=== PATIENT | female | born 1980 | race African-American/Black ===

== ENCOUNTER 2020-10-09 03:56 | Emergency (ER) | payer OTHER ==
[~2020-10-09] VITALS: Ht 172.7 cm; Wt 61.2 kg
[2020-10-09 03:59] VITALS: BP 126/80
[2020-10-09] MEDS ORDERED: NACL 0.9% 1,000 ML IV ONE ×2 (04:35→06:30)
[2020-10-09] MEDS ORDERED: ACETAMINOPHEN EXTRA STRENGTH 500 MG TAB PO ONE (04:35)
[2020-10-09 05:16] LABS: BASOPHILS % (AUTO) 0.3 % (0.0-2.0); EOSINOPHILS # (AUTO) 0.1 K/uL (0-0.4); EOSINOPHILS % (AUTO) 0.4 % (0.0-4.0); HEMATOCRIT 32.6 % (36-48); HEMOGLOBIN 10.5 g/dL (12.0-16.0); LYMPHOCYTES # (AUTO) 3.4 K/uL (2.5-16.5); LYMPHOCYTES % (AUTO) 24.7 % (20.5-51.1); MEAN CORPUSCULAR HEMOGLOBIN 28 pg (27-31); MEAN CORPUSCULAR HGB CONC 32 g/dL (33-37); MEAN CORPUSCULAR VOLUME 86.6 fL (80-94); MONOCYTES # (AUTO) 0.6 K/uL (0.8-1.0); MONOCYTES % (AUTO) 4.7 % (1.7-9.3); NEUTROPHILS # (AUTO) 9.6 K/uL (1.8-7.7); NEUTROPHILS % (AUTO) 69.9 % (42.2-75.2); PLATELET COUNT (AUTO) 163 K/uL (140-450); RED BLOOD CELL COUNT(AUTO) 3.76 MIL/uL (4.20-5.40); RED CELL DISTRIBUTION WIDTH 16.7 % (11.6-13.7); WHITE BLOOD COUNT (AUTO) 13.8 K/uL (4.8-10.8)
[2020-10-09] MEDS ORDERED: cefTRIAXone 1,000 MG VIAL ONE (05:44)
[2020-10-09 05:45] LABS: ALBUMIN 3.1 g/dL (3.4-5.0); CARBON DIOXIDE 21.6 mmol/L (21-32); CREATININE 0.7 mg/dL (0.6-1.3); POTASSIUM 3.6 mmol/L (3.5-5.1); TOTAL BILIRUBIN 0.2 mg/dL (0.0-1.0)
[2020-10-09 05:54] LABS: APPEARANCE,URINE SL CLOUDY (CLEAR); BILIRUBIN,URINE 1+ (NEGATIVE); BLOOD, URINE TRACE-I (NEGATIVE); COLOR,URINE YELLOW (YELLOW); LEUKOCYTE ESTERASE ,URINE 1+ (NEGATIVE); NITRITE, URINE POSITIVE (NEGATIVE); UGLUCOSE NEGATIVE (NEGATIVE)
[2020-10-09] MEDS ORDERED: D5W IV SCH (05:55)
[2020-10-09] MEDS ORDERED: LIDOCAINE IV SCH (05:55)
[2020-10-09 06:04] LABS: RBC,URINE 0-5 /HPF (0-5)
[2020-10-09 06:05] LABS: URINE AMORPHOUS URATE 1+ /HPF (None Seen)
[2020-10-09] MEDS ORDERED: CEPH-588 PO (09:20)
[2020-10-09] MEDS ORDERED: ACET-10509 PO (09:20)
[2020-10-09 09:45] VITALS: BP 121/65
== END 2020-10-09 09:47 | disposition home or self-care (01) ==
LOC: MED 03:56
DX: O23.00 Infections of kidney in pregnancy, unspecified trimester (principal); F17.210 Nicotine dependence, cigarettes, uncomplicated; Z88.2 Allergy status to sulfonamides
CPT/HCPCS: 36415; 71045; 76770; 76815; 80053; 81001; 81025; 83605; 83880; 84484; 84702; 85025; 87040; 87086; 93005; 96361; 96365; 99285; J0696; J7030

== ENCOUNTER 2020-10-18 19:18 | Emergency (ER) | payer OTHER ==
[~2020-10-18] VITALS: Ht 172.7 cm; Wt 61.2 kg
[~2020-10-18 19:18] MED LIST: ACET-10509 PO; CEPH-588 PO
[2020-10-18 19:36] VITALS: BP 108/64
[2020-10-18 21:25] LABS: BASOPHILS % (AUTO) 0.1 % (0.0-2.0); EOSINOPHILS % (AUTO) 0.1 % (0.0-4.0); HEMATOCRIT 31.5 % (36-48); HEMOGLOBIN 10.3 g/dL (12.0-16.0); LYMPHOCYTES # (AUTO) 1.2 K/uL (2.5-16.5); LYMPHOCYTES % (AUTO) 10.7 % (20.5-51.1); MEAN CORPUSCULAR HEMOGLOBIN 28 pg (27-31); MEAN CORPUSCULAR HGB CONC 33 g/dL (33-37); MEAN CORPUSCULAR VOLUME 86.2 fL (80-94); MONOCYTES # (AUTO) 0.4 K/uL (0.8-1.0); MONOCYTES % (AUTO) 3.8 % (1.7-9.3); NEUTROPHILS # (AUTO) 9.6 K/uL (1.8-7.7); NEUTROPHILS % (AUTO) 85.3 % (42.2-75.2); PLATELET COUNT (AUTO) 155 K/uL (140-450); RED BLOOD CELL COUNT(AUTO) 3.65 MIL/uL (4.20-5.40); RED CELL DISTRIBUTION WIDTH 16.2 % (11.6-13.7); WHITE BLOOD COUNT (AUTO) 11.2 K/uL (4.8-10.8)
[2020-10-18 21:41] LABS: CARBON DIOXIDE 26.4 mmol/L (21-32); CREATININE 0.6 mg/dL (0.6-1.3); POTASSIUM 4.4 mmol/L (3.5-5.1)
[2020-10-18] MEDS ORDERED: ACETAMINOPHEN EXTRA STRENGTH 500 MG TAB PO ONE (22:05)
[2020-10-18 22:15] LABS: APPEARANCE,URINE CLOUDY (CLEAR); BILIRUBIN,URINE NEGATIVE (NEGATIVE); BLOOD, URINE NEGATIVE (NEGATIVE); COLOR,URINE YELLOW (YELLOW); LEUKOCYTE ESTERASE ,URINE NEGATIVE (NEGATIVE); NITRITE, URINE NEGATIVE (NEGATIVE); UGLUCOSE NEGATIVE (NEGATIVE)
[2020-10-18] MEDS ORDERED: ACET-2619 PO (22:52)
== END 2020-10-18 23:14 | disposition home or self-care (01) ==
LOC: MED 19:18
DX: O26.891 Other specified pregnancy related conditions, first trimester (principal); R60.9 Edema, unspecified; D64.9 Anemia, unspecified; Z3A.12 12 weeks gestation of pregnancy; Z79.899 Other long term (current) drug therapy; Z88.2 Allergy status to sulfonamides
CPT/HCPCS: 36415; 80048; 81002; 81003; 83735; 85025; 93970; 99284

== ENCOUNTER 2021-03-21 12:02 | Emergency (ER) | payer OTHER, SELFPAY ==
[~2021-03-21] VITALS: Ht 172.7 cm; Wt 68.2 kg
[~2021-03-21 12:02] MED LIST changes: -ACET-10509 PO; +ACET-2619 PO
[2021-03-21 12:15] VITALS: BP 129/52
--- NOTE | 2021-03-21 12:30 | NUR ---
41 Y/O FEMALE PRESENTS TO ED FOR SUTURE REMOVAL FROM . PT DELIVERED HERE 02/27/21 WITHOUT COMPLICATIONS. PT REPORTS CHILLS X1 WEEK, DENIES FEVER OR EXPOSURE TO COVID. PT REPORTS THIS IS THE FIRST TIME FOLLOWING UP WITH MD. PT C/O PAIN AT INCISION, NO SIGNS OF INFECTION NOTED. PT DENIES TAKING ANYTHING FOR PAIN. PT A/O X4 WITH EVEN AND UNLABORED RESPIRATIONS. PMH:LUPUS, RHEUMATOID ARTHRITIS ALLERGIES:SULFA
--- NOTE | 2021-03-21 13:14 | NUR ---
DR GALLEGOS AT BEDSIDE EVALUATING PT
[2021-03-21] MEDS ORDERED: IBUP-2213 PO (13:20)
[2021-03-21] MEDS ORDERED: ACET-10509 PO (13:20)
--- NOTE | 2021-03-21 13:29 | NUR ---
Patient discharged with v/s stable. Written and verbal after care instructions ABOUT [facility] DELIVERY AFTER CARE given and explained. Patient alert, oriented and verbalized understanding of instructions. Ambulatory with steady gait. All questions addressed prior to discharge. ID band removed. Patient advised to follow up with PMD. Rx of TYLENOL EXTRA STRENGTH AND IBUPROFEN given. Patient educated on indication of medication including possible reaction and side effects. Opportunity to ask questions provided and answered.
== END 2021-03-21 13:29 | disposition home or self-care (01) ==
LOC: MED 12:02
DX: Z48.01 Encounter for change or removal of surgical wound dressing (principal); Z39.2 Encounter for routine postpartum follow-up; Z79.1 Long term (current) use of non-steroidal anti-inflammatories (NSAID); Z79.2 Long term (current) use of antibiotics; Z79.899 Other long term (current) drug therapy; Z88.2 Allergy status to sulfonamides
CPT/HCPCS: 99282

== ENCOUNTER 2021-03-24 11:22 | Emergency (ER) | payer OTHER ==
[~2021-03-24] VITALS: Ht 172.7 cm; Wt 68.0 kg
[~2021-03-24 11:22] MED LIST changes: +ACET-10509 PO; +IBUP-2213 PO
[2021-03-24 11:36] VITALS: BP 125/75
--- NOTE | 2021-03-24 11:41 | NUR ---
PT TO WAIT IN LOBBY.
--- NOTE | 2021-03-24 12:15 | NUR ---
SHAGGY BERUMEN WITH PT FOOR FURTHER EVALUATION.
[2021-03-24] MEDS ORDERED: KEN.1O TP (12:31)
[2021-03-24] MEDS ORDERED: CEPH-588 PO (12:31)
--- NOTE | 2021-03-24 12:34 | NUR ---
41 Y/O FEMALE C/O LEFT LEG 11/29 DESCRIBES THROBBING NON-RADIATING X3DAYS S/P INSECT BITE. PT REPORTS PRURITIS WITH YELLOW D/C TO AREA. PT APPLIED AQUAPHOR OINTMENT. DENIES N/V, DENIES FEVER/CHILLS. PMH: LUPUS, RA, ANEMIA ALLERGIES: SULFA
[2021-03-24 12:40] VITALS: BP 125/75
--- NOTE | 2021-03-24 12:41 | NUR ---
Patient discharged with v/s stable. Written and verbal after care instructions given and explained. Patient alert, oriented and verbalized understanding of instructions. Ambulatory with steady gait. All questions addressed prior to discharge. ID band removed. Patient advised to follow up with PMD. Rx of cephalexin, kenalog given. Patient educated on indication of medication including possible reaction and side effects. Opportunity to ask questions provided and answered.
== END 2021-03-24 12:41 | disposition home or self-care (01) ==
LOC: MED 11:22
DX: S80.861A Insect bite (nonvenomous), right lower leg, initial encounter (principal); L03.115 Cellulitis of right lower limb; Z79.899 Other long term (current) drug therapy; Z79.2 Long term (current) use of antibiotics; Z79.1 Long term (current) use of non-steroidal anti-inflammatories (NSAID); Z88.2 Allergy status to sulfonamides; W57.XXXA Bitten or stung by nonvenomous insect and other nonvenomous arthropods, initial encounter; Y92.89 Other specified places as the place of occurrence of the external cause; Y93.89 Activity, other specified; Y99.8 Other external cause status
CPT/HCPCS: 99283

== ENCOUNTER 2021-04-12 16:46 | Emergency (ER) | payer OTHER ==
[~2021-04-12] VITALS: Ht 172.7 cm; Wt 68.0 kg
[~2021-04-12 16:46] MED LIST changes: +KEN.1O TP
[2021-04-12 18:15] VITALS: BP 109/67
[2021-04-12 20:25] LABS: BASOPHILS % (AUTO) 0.4 % (0.0-2.0); EOSINOPHILS # (AUTO) 0.2 K/uL (0-0.4); EOSINOPHILS % (AUTO) 2.2 % (0.0-4.0); HEMATOCRIT 34.3 % (36-48); LYMPHOCYTES # (AUTO) 2.1 K/uL (2.5-16.5); LYMPHOCYTES % (AUTO) 30.2 % (20.5-51.1); MEAN CORPUSCULAR HEMOGLOBIN 26 pg (27-31); MEAN CORPUSCULAR HGB CONC 32 g/dL (33-37); MONOCYTES # (AUTO) 0.5 K/uL (0.8-1.0); MONOCYTES % (AUTO) 6.6 % (1.7-9.3); NEUTROPHILS # (AUTO) 4.3 K/uL (1.8-7.7); NEUTROPHILS % (AUTO) 60.6 % (42.2-75.2); PLATELET COUNT (AUTO) 193 K/uL (140-450); RED BLOOD CELL COUNT(AUTO) 4.29 MIL/uL (4.20-5.40); RED CELL DISTRIBUTION WIDTH 14.5 % (11.6-13.7)
[2021-04-12 20:49] LABS: ANION GAP 9.4 (8-16); CREATININE 0.8 mg/dL (0.6-1.3); POTASSIUM 4.4 mmol/L (3.5-5.1)
[2021-04-12 20:50] LABS: PROTHROMBIN TIME 9.9 secs (10.8-13.4)
[2021-04-13 01:00] VITALS: BP 115/71
--- NOTE | 2021-04-13 01:00 | NUR ---
Patient discharged with v/s stable. Written and verbal after care instructions given and explained. Patient verbalized understanding. Ambulatory with steady gait. All questions addressed prior to discharge. Advised to follow up with PMD.
== END 2021-04-13 01:00 | disposition home or self-care (01) ==
LOC: MED 16:46
DX: N93.9 Abnormal uterine and vaginal bleeding, unspecified (principal); Z88.2 Allergy status to sulfonamides
CPT/HCPCS: 36415; 76830; 80048; 84702; 85025; 85610; 85730; 86886; 86900; 86901; 99284; Q0092

== ENCOUNTER 2022-03-30 16:53 | Emergency (ER) | payer MEDICAID, OTHER ==
[~2022-03-30] VITALS: Ht 172.7 cm; Wt 85.7 kg
[2022-03-30 17:13] VITALS: BP 113/71
--- NOTE | 2022-03-30 17:53 | NUR ---
42/F WALKED IN REQUESTING MED REFILL FOR PREDNISONE AND hydroxychloroquine FOR DX LUPUS AND RA. PT STATES SHE RAN OUT OF MEDS AND HAS AN APPOINTMENT TO VISIT PCP ON 04/12. AAO4, AMBULATORY, VITALS STABLE, NO ACUTE DISTRESS AT THIS TIME. PMH: LUPUS, RA ALLERGIC TO SULFA
[2022-03-30] MEDS ORDERED: HYDR200T5 PO (18:58)
[2022-03-30] MEDS ORDERED: PRED20TA6 PO (18:58)
== END 2022-03-30 19:00 | disposition home or self-care (01) ==
LOC: MED 16:53
DX: Z76.0 Encounter for issue of repeat prescription (principal)
CPT/HCPCS: 99281

== ENCOUNTER 2022-06-03 17:08 | Emergency (ER) | payer MEDICAID ==
[~2022-06-03] VITALS: Ht 172.7 cm; Wt 86.2 kg
[~2022-06-03 17:08] MED LIST changes: +HYDR200T5 PO; +PRED20TA6 PO
[2022-06-03 17:23] VITALS: BP 112/83
[2022-06-03] MEDS ORDERED: PRED10TA5 PO (19:00)
--- NOTE | 2022-06-03 19:14 | NUR ---
Patient discharged with v/s stable. Written and verbal after care instructions about Systemic lupus erythematous given and explained. Patient alert, oriented and verbalized understanding of instructions. Ambulatory with steady gait. All questions addressed prior to discharge. ID band removed. Patient advised to follow up with PMD. Rx of Prednisone given. Patient educated on indication of medication including possible reaction and side effects. Opportunity to ask questions provided and answered.
== END 2022-06-03 22:37 | disposition home or self-care (01) ==
LOC: MED 17:08
DX: L93.0 Discoid lupus erythematosus (principal); Z76.0 Encounter for issue of repeat prescription; Z88.2 Allergy status to sulfonamides
CPT/HCPCS: 99283